=== PATIENT | male | born 1945 | race Caucasian/White ===

== ENCOUNTER 2024-02-17 12:43 | Emergency (ER) | payer OTHER, MEDICARE, SELFPAY ==
[2024-02-17 12:44] VITALS: BP 150/62; PULSE 46; RESP 18; TEMP 36.3; O2SAT 100; BMI 25.2
--- NOTE | 2024-02-17 12:50 | RAD_ITS ---
STUDY: X-RAY - LEFT SHOULDER REASON FOR EXAM: Male, 78 years old. Left shoulder pain following a fall. TECHNIQUE: 4 view(s) of the shoulder. COMPARISON: None. FINDINGS: Normal glenohumeral articulation. There is no widening of the coracoclavicular distance. There is widening of the AC joint, but without displacement of the clavicle or widening of the coracoclavicular distance, consistent with a Type II acromioclavicular joint separation. Normal acromion. There is evidence of the transverse fracture of the scapula just distal to the glenoid. There is also evidence of nondisplaced fractures of the left second third and fourth ribs. Normal humeral head and visualized proximal humerus. Soft tissue swelling. Normal visualized pulmonary apex. RAD/Shoulder min 2 Views IMPRESSION: Nondisplaced transverse fracture of the subglenoid aspect of the scapula as well as left rib fractures. Type II left AC joint separation. Electronically Signed: Mendoza Scales MD at 13:13 EDT ,
--- NOTE | 2024-02-17 12:50 | RAD_ITS ---
STUDY: X-RAY - LEFT CLAVICLE REASON FOR EXAM: Male, 78 years old. FALL TECHNIQUE: 2 view(s) of the clavicle. COMPARISON: None. FINDINGS: Normal clavicle. There is widening of the AC joint, but without displacement of the clavicle or widening of the coracoclavicular distance, consistent with a Type II acromioclavicular dislocation. Normal visualized sternoclavicular articulation. Left-sided rib fractures as well as a fracture through the subglenoid region of the scapula as described on prior examination. RAD/Clavicle IMPRESSION: Type II left AC joint separation. Left rib fractures as well as a fracture through the body of the scapula at the subglenoid region. Electronically Signed: Mendoza Scaels MD at 13:14 EDT ,
--- NOTE | 2024-02-17 14:43 | ED.VIS.FALL ---
HPI HPI - Fall History of Present Illness Chief Complaint: Fall Informant: patient Occured/Mechanism Occurred: Today and Hours Fall from Height (ft): 3 feet to the ground from a flatbed pickup truck Usually ambulates: Without assistance Pain/Injury Pain Location: chest and upper extremity Quality of Pain: Sharp Current Severity: Severe Maximum Severity: Severe Associated Symptoms Associated Symptoms: Negative for Parasthesias, Weakness, Loss of function, Inability to ambulate, Loss of consciousness or Amnesia Narrative Narrative: 78-year-old male history of kidney stones otherwise healthy on no blood thinners. Using a bungee cord to strip something on a flatbed truck a bungee cord released he lost his balance and fell to the ground landing on his left shoulder. He is complaining of pain on his left shoulder and left rib cage. Denies any head injury or headache. His abrasion to his left ear. He denies any neck or back pain. He denies any abdominal pain he denies any pain to his right upper or lower extremities. This occurred about 2+ hours ago. Prior similar symptoms: No Recent Illness/Hospitalization: No [facility] Medical History Kidney stone Home Medications ?Medication ?Instructions ?Recorded ?Last Taken ?Type NK 02/17/24 Unknown History Allergy/AdvReac Type Severity Reaction Status Date / Time No Known Allergies Allergy Verified 02/17/24 12:46 Social History Smoking Status: Never smoker ROS ROS ED ROS Narrative Denies recent illness. Constitutional Constitutional ED: Denies fever(s) Eyes Eyes: Denies blurry vision ENT ENT ED: Denies ear pain Cardiovascular Cardiovascular: Reports chest pain and other Details: Rib cage pain post fall Respiratory/Chest Respiratory/Chest: Denies cough or dyspnea Gastrointestinal Gastrointestinal: Denies abdominal pain Genitourinary Genitourinary ED: Denies dysuria or hematuria Musculoskeletal Musculoskeletal: Denies arthralgias Integumentary Denies abscess Neurologic Neurologic: Denies headache(s) Psychiatric Psychiatric: Denies anxiety or depression Endocrine Endocrinology: Denies polydipsia Hematologic/Lymphatic Hematologic/Lymphatic: Denies easy bleeding Allergic/Immunologic Allergic/Immunologic ED: Denies mouth swelling, tongue swelling or urticaria EXAM Physical Exam Narrative Exam Narrative: Says [id number] male sitting upright in bed. Spouse at bedside. Vital signs are stable afebrile. Pulse ox 100% on room air no signs of hypoxia. H EENT exam pupils round reactive light. He has got no signs of trauma to his face or scalp. He is a minor abrasion on his left ear dried blood but no significant laceration needs sewn. C-spine nontender. Trachea midline. Back and spine nontender. No bruising. No signs of trauma. Chest wall anterior left and lateral chest wall tenderness. No crepitance or subcu air. He does have bony tenderness. Heart regular rhythm no murmur. Lungs are clear to auscultation bilaterally. Abdomen soft nontender. No bruising. Pelvic girdle intact. Right upper both lower extremities are nontender normal range of motion. Normal inside upholsterer strength. Normal dorsi plantarflexion. Normal sensation. He has tenderness along the left shoulder left AC joint. He does not want to do range of motion of the left shoulder due to pain. The distal humerus, elbow, left forearm, wrist and hand are nontender neurovascularly intact with normal radial pulse and inside upholsterer strength. Neurologically is awake and alert. Answering questions following commands. GCS of 15. Const Vital Signs: 02/17/24 12:44 02/17/24 13:39 02/17/24 15:03 Temperature 97.4 F L Temperature Source Temporal Pulse Rate 46 L 76 Respiratory Rate 18 16 Respiratory Effort Normal Respiratory Depth Normal Respiratory Pattern Normal Blood Pressure 150/62 H 163/83 H Blood Pressure Mean 91 109 Pulse Ox 100 98 Oxygen Delivery Method Room Air Room Air Room Air Positive well nourished and well developed; Negative for obese, cachectic, contractures or unkempt General Appearance ED: well developed; Negative for unkempt, cachectic, contractures or NAD Nutritional Appearance: Negative for cachectic or obese HEENT Reports normocephalic HEENT Narrative: Abrasion left ear. trauma; Negative for atraumatic, contusion, hematoma or tenderness Eyes PERRL and EOMs intact bilaterally General Eye ED: Negative for pale conjunctiva, scleral icterus or other Neck full ROM, no lymphadenopathy and supple General: Negative for tenderness Chest Wall inspection of chest normal and palpation of chest normal Resp normal respiratory effort, no retractions and clear to auscultation bilaterally Effort and Inspection: Negative for pain with movement Auscultation: Negative for rales, rhonchi, wheezes or diminished lung sounds Cardio regular rate, regular rhythm, S1 normal heart sound, S2 normal heart sound and no murmurs Rate: Negative for bradycardia or tachycardic Rhythm: Negative for abnormal rhythm Bruits: Negative for other GI non-tender, non-distended and no masses Inspection: Negative for abdominal distention Auscultation: normoactive bowel sounds Palpation: soft; Negative for guarding or rebound tenderness present Back/Spine no CVA tenderness General Back: Negative for CVA tenderness, erythema, ecchymosis, swelling or tenderness Cervical Spine: Negative for cervical spine tenderness Lumbar Spine / Lower Back: Negative for lumbar spinal tenderness or paraspinal muscle tenderness Neuro oriented x3, CN's II-XII intact bilaterally, No moves all extremities and no sensory deficits noted Jay Coma Scale: document GCS findings Spontaneous Obeys Commands Oriented 15 Sensorium / Orientation: alert, oriented to person, oriented to place and oriented to time; Negative for orientation impaired, confused, lethargic or stuporous Motor Exam: strength 5/5 throughout Psych mental status grossly normal and thought process normal Appearance: Negative for unkempt Attitude: No agitated Mood & Affect: Negative for depressed, anxious or tearful Skin Lesions: no lesions Rashes: no rashes MDM MDM MDM Narrative Medical decision making narrative: 78-year-old male work-related injury fell off a flatbed trailer 3 feet to the ground causing a left shoulder scapular fracture. No head injury. X-rays and CAT scans to be obtained. Repeat exam patient doing well at 4:20 PM. He is awake alert. Answer questions following commands. His abdomen is completely benign. I will be given another dose of morphine discharged home. He already has pain medication at home due to a history of kidney stones. He will follow-up with Dr. Feroz Servin over with orthopedics for his left scapular fracture and AC separation. I be written off work. Radiography Chest X-Ray - ED: 2 View Diagnostic Testing: Clinical Impression(s) from Imaging Studies Clavicle X-Ray 02/17/24 12:50 IMPRESSION: Type II left AC joint separation. Left rib fractures as well as a fracture through the body of the scapula at the subglenoid region. Electronically Signed: Mendoza Scales MD at 13:14 EDT , Shoulder X-Ray 02/17/24 12:50 IMPRESSION: Nondisplaced transverse fracture of the subglenoid aspect of the scapula as well as left rib fractures. Type II left AC joint separation. Electronically Signed: Mendoza Scales MD at 13:13 EDT , Chest CT 02/17/24 14:49 IMPRESSION: Nondisplaced fracture through the body of the left scapula and in the subcutaneous glenoid region. No definite left rib fracture is seen. Electronically Signed: Mendoza Scales MD at 15:44 EDT , Left shoulder x-ray 4 views shows a fracture of the slob glenoid area of the scapular. Possible AC separation. Interpreted both by myself and radiologist. Clavicle x-ray shows no clavicle fracture. Possible AC separation. Interpreted by by myself and radiologist. Discharge Plan Triage Chief Complaint: Fall ED Provider: Enrike Putnam Dx/Rx/DC Orders Clinical Impression: Encounter related to worker's compensation claim, Fracture closed, scapula, Fall, AC separation, Contusion of rib on left side Instructions: Treatment for Shoulder Separation, ED Chest Wall Contusion, ED Bruise, Rib, ED Fracture, Shoulder Prescriptions: No Action NK Primary Care Provider: Deshawn Solzi Referrals: Deshawn Soliz MD [Primary Care Provider] - Feroz Servin MD [Med Staff - Active Staff] - As soon as possible Activity Restrictions/Additional Instructions: Ice all sore areas. Use your home pain meds for the left scapular fracture. Call and follow-up with Dr. Young Servin of [facility] for further evaluation of your left shoulder AC separation and scapula fracture. Print Language: Cambodian Disposition Disposition: Home, Self Care
--- NOTE | 2024-02-17 14:49 | CT_ITS ---
STUDY: CT CHEST WITHOUT CONTRAST REASON FOR EXAM: Male, 78 years old. Left scapula and rib fracture. Trauma RADIATION DOSAGE (If Supplied By Facility): CTDIvol = ( 8.12 ) mGy, DLP = ( 280.4 ) mGycm TECHNIQUE: Transaxial imaging was performed without the administration of intravenous contrast material. Multiplanar coronal and sagittal images were reformatted. Individualized dose optimization techniques were used for this CT. COMPARISON: Comparison is made with prior radiographs from earlier today. FINDINGS: CHEST Mild degree of increasing markings at the lung bases suggestive of scarring and/or atelectasis. There is also evidence of scarring in the peripheral lateral aspect of the left lower lobe. There is no demonstrated pleural abnormality. There are calcifications of the coronary arteries. Normal mediastinum. Normal hilar regions. Normal unenhanced pulmonary arteries. There is atherosclerotic calcification of the aortic arch with tortuosity and elongation of the aortic arch and descending thoracic aorta. There is evidence of a nondisplaced fracture through the body of the scapula in the subglenoid region. No definite rib fractures are seen. The ribs There is no demonstrated abnormality of the visualized upper abdomen. CT/Chest without Contrast IMPRESSION: Nondisplaced fracture through the body of the left scapula and in the subcutaneous glenoid region. No definite left rib fracture is seen. Electronically Signed: Mendoza Scales MD at 15:44 EDT ,
[2024-02-17] MEDS: Ondansetron 4 MG/2 ML Vial IV (14:58)
[2024-02-17] MEDS: morphine 8 MG/ML Syringe 6 MG IV ×2 (15:00→16:44)
[2024-02-17 15:03] VITALS: BP 163/83; PULSE 76; RESP 16; O2SAT 98
[2024-02-17 16:00] VITALS: BP 157/74; PULSE 71; RESP 16; TEMP 36.6; O2SAT 99
== END 2024-02-17 16:59 | disposition home or self-care (01) ==
PROVIDERS: Emergency Provider Emergency Medicine; PCP Family Medicine; Visit Provider Emergency Medicine
DX: Z04.2 Encounter for examination and observation following work accident (principal); S42.145A Nondisplaced fracture of glenoid cavity of scapula, left shoulder, initial encounter for closed fracture; R26.2 Difficulty in walking, not elsewhere classified; Z87.442 Personal history of urinary calculi; W17.89XA Other fall from one level to another, initial encounter; S00.412A Abrasion of left ear, initial encounter; S22.42XA Multiple fractures of ribs, left side, initial encounter for closed fracture; S43.102A Unspecified dislocation of left acromioclavicular joint, initial encounter
CPT/HCPCS: 71250; 73000; 73030; 96374; 96375; 96376; 99284; A4216; J2405